=== PATIENT | female | born 1960 | race Two or more races ===

== ENCOUNTER 2024-08-06 09:52 | Outpatient (CLI) | payer OTHER | END 2024-08-06 10:04 | disposition home or self-care (01) | LOC: TOM 09:52 | PROVIDERS: ATTEND Internal Medicine Gastroenterology | DX: C18.9 Malignant neoplasm of colon, unspecified (principal); K57.92 Diverticulitis of intestine, part unspecified, without perforation or abscess without bleeding; K59.00 Constipation, unspecified ==